=== PATIENT | female | born 1945 | race Caucasian/White ===

== ENCOUNTER → 2016-05-30 | Outpatient (CLI) | payer MEDICARE | LOC: RAD 14:25 | DX: M51.16 Intervertebral disc disorders with radiculopathy, lumbar region (principal); R25.2 Cramp and spasm; M47.816 Spondylosis without myelopathy or radiculopathy, lumbar region; M85.852 Other specified disorders of bone density and structure, left thigh | CPT/HCPCS: 72110; 73502 ==

== ENCOUNTER → 2021-04-28 | Outpatient (CLI) | payer MEDICARE ==
[~2021-04-28] MED LIST: OMNICEF 300 MG300 MG PO; ONDANSETRON ODT4 MG SL
== END ==
LOC: RAD 09:06
DX: M79.661 Pain in right lower leg (principal); M79.89 Other specified soft tissue disorders
CPT/HCPCS: 73590

== ENCOUNTER → 2021-08-20 | Outpatient (CLI) | payer MEDICARE | LOC: KOH-I 10:00 | DX: R79.1 Abnormal coagulation profile (principal); R60.0 Localized edema | CPT/HCPCS: 93970 ==